=== PATIENT | female | born 1960 | race African-American/Black ===

== ENCOUNTER 2018-01-23 14:53 | Emergency (ER) | payer OTHER ==
[~2018-01-23] VITALS: Ht 175.3 cm; Wt 92.5 kg
[2018-01-23] MEDS ORDERED: METFORMIN HCL1000 M1 ORAL (15:09)
[2018-01-23] MEDS ORDERED: AMLODIPINE BESY10 MG ORAL (15:09)
[2018-01-23] MEDS ORDERED: LISINOPRIL40 MG ORAL (15:09)
[2018-01-23] MEDS ORDERED: traMADol 50mg tab ORAL ONE (15:30)
--- NOTE | 2018-01-23 15:32 | Emergency Room Report ---
History of Present Illness General Chief Complaint: Upper Extremity Injury Source: Patient Present Illness HPI 57-year-old female patient presents ER requesting her left elbow to be re- splinted. Patient reports that 2 weeks ago she fractured her left elbow. States cast was initially put on at that time. States that she was told to follow-up with the specialist. States she will specialist one week ago, states that she was told that it is still fractured but allegedly was told that they would not put a splint on her. Patient states that her insurance company said that was "not okay" and sent her to the hospital to be resplinted. States has not been taking a medication for relief of pain. Denies fever, chest pain, shortness of breath. Reports pain with movement. Patient is currently wearing a sling and to ER.reports history of diabetes, states well-controlled. Allergies: Coded Allergies: No Known Allergies (Unverified , 01/23/18) Patient History Past Medical History: see triage record Now: No Reviewed Nursing Documentation: PMH: Agreed; PSxH: Agreed Nursing Documentation-PMH Past Medical History: No History, Except For Hx Diabetes: Yes Hx Cancer: Yes - Cervical Review of Systems All Other Systems: negative except mentioned in HPI Physical Exam Vital Signs Date Time Temp Pulse Resp B/P (MAP) Pulse Ox O2 Delivery O2 Flow Rate FiO2 01/23/18 15:03 98.2 86 20 177/82 98 Room Air Sp02 EP Interpretation: reviewed, normal General Appearance: well appearing, no apparent distress, alert, GCS 15, non- toxic Head: normocephalic, atraumatic Eyes: bilateral eye normal inspection, bilateral eye PERRL ENT: hearing grossly normal, normal pharynx, no angioedema, normal voice, uvula midline, moist mucus membranes Neck: full range of motion Respiratory: lungs clear, normal breath sounds, no rhonchi, no respiratory distress, no accessory muscle use, no wheezing, speaking full sentences Cardiovascular #1: regular rate, rhythm, no edema Cardiovascular #2: 2+ radial (R), 2+ radial (L) Musculoskeletal: back normal, digits/nails normal, gait/station normal, decreased range of motion - secondary to pain, other - NVI, no swelling or erythema, AIN/PIN/radial nerve intact, no snuffbox tenderness, cap refill less than 2 seconds, tender - left elbow ulnar aspect Neurologic: alert, oriented x3, responsive, motor strength/tone normal, sensory intact Psychiatric: mood/affect normal Skin: no rash Lymphatic: no adenopathy Medical Decision Making PA Attestation Dr. Peña is my supervising Physician whom patient management has been discussed with. Diagnostic Impression: Primary Impression: Left elbow fracture ER Course Pt. presents to the ED c/o left elbow pain, requesting splint. Ddx considered but are not limited to fracture, sprain, strain, contusion, dislocation. No erythema, no warmth to touch, no fever, nontoxic appearing, low suspicion for septic joint. Soft compartments, no pulselessness, no pallor, no paresthesias, low suspicion for compartment syndrome at this time. Vital signs: are WNL, pt. is afebrile Ordered X-ray and pain medication. ER COURSE Provided with pain medication. CURES reviewed. shows fill prescription of pain medication 1 week ago for 2 days , patient states she fill the prescription but did not take the medication. An X-ray of the left elbow shows anterior fat pad, calcific density adjacent coronoid process of ulna, could represent small avulsion injury or chronic, linear lucency at anterior radial head neck, due to bony overlap or possible small fracture, no definitive fracture demonstrated. discussed report with radiologist. Due to history of diagnosis of fracture will call fracture in ER, will splint arm. Provide with contact info for ortho specialist and ortho urgent care, followup with them for further treatment and evaluation. Discuss results with the patient. Provided patient with copy of results. Instructed patient to followup with PCP and discuss results of report with patient, discuss need for further treatment and referral. Splint was applied to the left elbow and was checked afterwards by me showing good alignment and support with distal neurovascular functioning intact. patient has arm sling does not need when provide Patient instructed on RICE method: rest, ice, compression, elevation. Patient instructed on rest, ice and heat. Patient instructed to be NWB Contact information for orthopedic urgent care provided, follow-up with urgent care if unable to followup with primary care provider and get referral to pest control specialist. Followup with primary care provider. Discuss referral to ortho/pain management/ PT as needed. Discuss further imaging with MRI/CT as needed. ER precautions given DISCHARGE: -Rx provided for Tylenol for pain symptoms. At this time pt. is stable for d/c to home. Patient is resting comfortably, in no acute distress, nontoxic appearing, talking without difficulty. Will provide printed patient care instructions, and any necessary prescriptions. Patient instructed to follow with primary care provider in 3 - 5 days and to request further follow-up as needed. Care plan and follow up instructions have been discussed with the patient prior to discharge. Take medications as directed. Patient questions asked and answered. Patient reports understanding and agreement to treatment plan. ER precautions given, patient instructed to return to ER immediately for any new or worsening of symptoms. - Please note that this Emergency Department Report was dictated using [employer] attendant technology software, occasionally this can lead to erroneous entry secondary to interpretation by the dictation equipment. Other X-Ray Diagnostic Results Other X-Ray Diagnostic Results : X-Ray ordered: left elbow # of Views/Limited Vs Complete: 3 View Indication: Pain EP Interpretation: Yes PA Xray: Interpretation reviewed, by supervising MD, and agrees with findings. Interpretation: no dislocation, no soft tissue swelling, no fractures Impression: Other - anterior fat pad, calcific density adjacent coronoid process of ulna, could represent small avulsion injury or chronic, linear lucency at anterior radial head neck, due to bony overlap or possible small fracture, no definitive fracture demonstrated PA Scribe Text Geovanny Sheikh PACarline Last Vital Signs Date Time Temp Pulse Resp B/P (MAP) Pulse Ox O2 Delivery O2 Flow Rate FiO2 01/23/18 15:03 98.2 86 20 177/82 98 Room Air Status: improved Disposition: HOME, SELF-CARE Condition: Stable Scripts Acetaminophen* (TYLENOL EXTRA STRENGTH*) 500 Mg Tablet 500 MG ORAL Q8H PRN for Prn Headache/Temp > 101, #30 TAB 0 Refills Prov: Pedro Pablo Sheikh PTyron 01/23/18 Patient Instructions: Elbow Fracture, Simple Additional Instructions: Patient instructed to follow up with primary care provider and discuss further referral to orthopedics/physical therapy/pain management as needed. If unable to followup with PCP, followup with orthopedic urgent care in 5-7 days , call to schedule appointment. Patient instructed on RICE method: rest, ice, compression, elevation. Patient instructed to NWB. Take medications as directed. Patient questions asked and answered. ER precautions given, patient instructed to return to ER immediately for any new or worsening of symptoms. [facility] [address] [facility] [address] [facility], [id number] [email or web address] Pedro Pablo Sheikh Jan 23, 2018 15:32
[2018-01-23 15:40] VITALS: BP 144/85
[2018-01-23 16:00] VITALS: BP 144/85
--- NOTE | 2018-01-23 16:12 | Diagnostic Imaging Report ---
Indications:57-year-old female, status post elbow trauma 2 weeks ago, told had elbow fracture, now for splenic replacement Technique: Three views of the left elbow Comparison: None Findings: The anterior fat pad is unusually prominent. However, no posterior fat pad is demonstrated. On the lateral view, very questionable cortical irregularity of the anterior radial head neck junction, probably just an artifact of overlapping bone. Tiny ossific density projects adjacent to the coracoid process. No other findings to suggest acute fracture demonstrated. No dislocations. The joint spaces are preserved Impression: Borderline prominent anterior fat pad, but no definite posterior fat pad sign to suggest joint effusion Small calcific density adjacent to the coronoid process of the ulna, could represent a small avulsion injury but could also be chronic. Correlate with clinical history and findings Linear lucency at the anterior radial head neck junction on the lateral view, probably just due to bony overlap of the cortex of the shaft over the radial head, but small fracture line also possible. No definite fracture demonstrated Findings discussed by phone with Geovanny in the emergency room at the time of interpretation
[2018-01-23] MEDS ORDERED: TYLENOL EXTRA500 MG ORAL (16:23)
== END 2018-01-23 16:00 | disposition home or self-care (01) ==
LOC: EMR 15:34
DX: S42.402D Unspecified fracture of lower end of left humerus, subsequent encounter for fracture with routine healing (principal); E11.9 Type 2 diabetes mellitus without complications; Z85.41 Personal history of malignant neoplasm of cervix uteri
CPT/HCPCS: 29105; 29125; 29515; 99283